=== PATIENT | male | born 2000 | race African-American/Black ===

== ENCOUNTER → 2021-11-02 | Outpatient (CLI) | payer OTHER | LOC: M CARPUL 08:35 | PROVIDERS: ATTEND Emergency Medicine | DX: I51.7 Cardiomegaly (principal) ==

== ENCOUNTER → 2021-11-08 | Outpatient (CLI) | payer OTHER ==
[~2021-11-08] MED LIST: METHACHOLINE KIT (J7674) INH ONE
== END ==
LOC: M CARPUL 07:23
PROVIDERS: ATTEND Nurse Practitioner Adult Health
DX: R06.02 Shortness of breath (principal)
CPT/HCPCS: 94070; J7674

== ENCOUNTER → 2021-11-12 | Outpatient (CLI) | payer OTHER | LOC: M RAD 16:23 | PROVIDERS: ATTEND Nurse Practitioner Adult Health | DX: R06.02 Shortness of breath (principal) ==

== ENCOUNTER → 2022-01-29 | Outpatient (REF) | LOC: M PLAIMG 11:10 | PROVIDERS: ATTEND Internal Medicine | DX: M54.50 Low back pain, unspecified (principal) ==